=== PATIENT | female | born 1990 | race Caucasian/White ===

== ENCOUNTER 2019-03-01 11:47 | Emergency (ER) | payer OTHER ==
[2019-03-01 13:56] LABS: Urine Blood NEGATIVE (NEG); Urine Glucose NEGATIVE (NEG); Urine Protein NEGATIVE (NEG)
--- NOTE | 2019-03-01 14:11 | RAD REPORT ---
EXAM DESCRIPTION: RAD - Wrist Left 3 View - 03/01/2019 2:06 pm CLINICAL HISTORY: fall Pain COMPARISON: No comparisons FINDINGS: No fracture or dislocation seen. No foreign body or other soft tissue abnormality. IMPRESSION: Negative examination.
--- NOTE | 2019-03-01 14:15 | RAD REPORT ---
EXAM DESCRIPTION: US - 1St Trimest Single 1St Fetus - 03/01/2019 2:07 pm CLINICAL HISTORY: fall 10 weeks preg , trauma to abdomen COMPARISON: No comparisons FINDINGS: A single gestational sac is seen within the uterus. The shape of the sac is within normal limits for gestational age. Within the sac is a single pole with crown-rump length of 3.3 cm, c orrelating to estimated gestational age of 10 weeks 1 day. Estimated date of delivery is 09/26/2019. Heart rate is 157 BPM. The placenta is not yet developed due to early gestational age. Bowel gas obscured the maternal adnexae with and ovaries. IMPRESSION: Single live early intrauterine gestation with estimated gestational age of 10 weeks 1 da y, ALBERTA 09/26/2019. No acute trauma related abnormality.
--- NOTE | 2019-03-01 18:48 | ER ---
Nurse's Notes [facility] Name: Nadira Granger Age: 28 yrs Sex: Female : 1990 Arrival Date: 03/01/2019 Time: 11:51 Bed 24 Private MD: Diagnosis: Pain in left wrist;Fall from chair;Unspecified abdominal pain Presentation: 03/01 11:55 Presenting complaint: Patient states: "I was sitting in my office chair and I leaned aj1 back too far and I fell. I hit my wrist and then my side and my stomach and I'm 10 weeks " Reports LLQ abdominal pain. Denies vaginal bleeding. Transition of care: patient was not received from another setting of care. Onset of symptoms was March 01, 2019. Risk Assessment: Do you want to hurt yourself or someone else? Patient reports no desire to harm self or others. Initial Sepsis Screen: Does the patient meet any 2 criteria? No. Patient's initial sepsis screen is negative. Does the patient have a suspected source of infection? No. Patient's initial sepsis screen is negative. Care prior to arrival: None. 11:55 Method Of Arrival: Ambulatory aj1 11:55 Acuity: BRET 3 aj1 15:28 Mechanism of Injury: Fall out of chair. Trauma event details: Injury occurred: February. Triage Assessment: 11:56 General: Appears in no apparent distress. comfortable, Behavior is calm, cooperative, aj1 appropriate for age. Pain: Complains of pain in left lower quadrant Pain currently is 7 out of 10 on a pain scale. Neuro: Level of Consciousness is awake, alert, obeys commands. Cardiovascular: Patient's skin is warm and dry. Respiratory: Airway is patent Respiratory effort is even, unlabored, Respiratory pattern is regular, symmetrical. 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 - Social history:: Smoking status: Patient/guardian denies using tobacco. - Immunization history: Last tetanus immunization: unknown. - Ebola Screening: : Patient denies travel to an Ebola-affected area in the 21 days before illness onset. Screenin:35 Abuse screen: Denies threats or abuse. Denies injuries from another. Nutritional mg2 screening: No deficits noted. Tuberculosis screening: No symptoms or risk factors identified. 15:30 Fall Risk Fall in past 12 months (25 points). mg2 Primary Survey: 14:34 NO uncontrolled hemorrhage observed. A: The patient is alert. Breathing/Chest: mg2 Respiratory pattern: regular, Respiratory effort: spontaneous, unlabored. Circulation: Skin color: pink. Disability Alert. Exposure/Environment: All clothing and personal items were removed. Forensic evidence collection is not deemed to be indicated at this time. Items placed in patient belonging bag. There is no evidence of uncontrolled external bleeding. No obvious injuries are noted at this time. A warming method has been applied: A warm blanket has been provided to the patient. 14:36 Reassessment Breathing/Chest Respiratory pattern. mg2 Secondary Survey: 14:35 HEENT: No deficits noted. Gastrointestinal: No deficits noted. : Reports pain in left mg2 flank(s). Musculoskeletal: Circulation, motion, and sensation intact. Capillary refill < 3 seconds. Assessment: 14:33 General: Appears in no apparent distress. comfortable, Behavior is calm, cooperative. mg2 Pain: Complains of pain in abdomen and left lower quadrant Pain does not radiate. Pain currently is 3 out of 10 on a pain scale. Quality of pain is described as aching, Pain began suddenly, 2 hours ago. Is intermittent. Neuro: Level of Consciousness is awake, alert, obeys commands, Oriented to person, place, time, situation. EENT: No signs and/or symptoms were reported regarding the EENT system. Cardiovascular: Capillary refill < 3 seconds Patient's skin is warm and dry. Respiratory: Airway is patent Respiratory effort is even, unlabored, Respiratory pattern is regular, symmetrical. GI: No signs and/or symptoms were reported involving the gastrointestinal system. : No signs and/or symptoms were reported regarding the genitourinary system. Derm: Skin is intact, is healthy with good turgor, Skin is pink, warm \\T\\ dry. normal. Musculoskeletal: Circulation, motion, and sensation intact. Capillary refill < 3 seconds. Vital Signs: 11:56 BP 132 / 74; Pulse 91; Resp 18; Temp 98.0; Pulse Ox 100% on R/A; Weight 74.39 kg (R); aj1 Height 5 ft. 7 in. (170.18 cm) (R); 14:35 BP 123 / 83; Pulse 88; Resp 18; Pulse Ox 100% on R/A; mg2 15:29 BP 122 / 78; Pulse 89; Resp 18; Temp 98; Pulse Ox 100% on R/A; mg2 11:56 Body Mass Index 25.69 (74.39 kg, 170.18 cm) aj1 Delmer Coma Score: 14:35 Eye Response: spontaneous(4). Verbal Response: oriented(5). Motor Response: obeys mg2 commands(6). Total: 15. 15:29 Eye Response: spontaneous(4). Verbal Response: oriented(5). Motor Response: obeys mg2 commands(6). Total: 15. Trauma Score (Adult): 14:35 Eye Response: spontaneous(1); Verbal Response: oriented(1); Motor Response: obeys mg2 commands(2); Systolic BP: > 89 mm Hg(4); Respiratory Rate: 10 to 29 per min(4); Delmer Score: 15; Trauma Score: 12 15:29 Eye Response: spontaneous(1); Verbal Response: oriented(1); Motor Response: obeys mg2 commands(2); Systolic BP: > 89 mm Hg(4); Respiratory Rate: 10 to 29 per min(4); Delmer Score: 15; Trauma Score: 12 ED Course: 11:51 Patient arrived in ED. mr 11:56 Triage completed. aj1 11:56 Arm band placed on Patient placed in waiting room, Patient notified of wait time. aj1 12:55 Michael Ybarra NP is PHCP. pm1 12:55 Herson Le MD is Attending Physician. pm1 12:56 Lukas Ace RN is Primary Nurse. mg2 13:12 Urine collected: clean catch specimen, clear. lt1 13:46 Radiology exam delayed due to PT IN [facility]. jb2 14:36 Patient has correct armband on for positive identification. Pulse ox on. NIBP on. mg2 14:36 No provider procedures requiring assistance completed. Patient did not have IV access mg2 during this emergency room visit. 15:28 Patient maintains SpO2 saturation greater than 95% on room air. Thermoregulation: warm mg2 blanket given to patient. Administered Medications: No medications were administered Intake: 14:35 PO: 0ml; Total: 0ml. mg2 Outcome: 15:05 Discharge ordered by MD. pm1 15:29 Discharged to home ambulatory. mg2 15:29 Condition: stable 15:29 Patient's length of stay in the Emergency Department was greater than 2 hours. awaiting for the tests results to be back/ [employer] was down. Patient's length of stay extended due to 15:30 Discharge instructions given to patient, Instructed on discharge instructions, follow mg2 up and referral plans. Demonstrated understanding of instructions, follow-up care. 15:30 Patient left the ED. mg2 Signatures: Renetta Gama, KARTHIKEYAN RN aj1 Lauryn Monsalve RamyacourtneyPoncho jb2 Michael Ybarra, ANDREA MOLD FILLING OPERATOR pm1 Lukas Ace RN RN mg2 Dodie Roa lt1
--- NOTE | 2019-03-01 18:49 | EDPHYS ---
Physician Documentation [facility] Name: Nadira Granger Age: 28 yrs Sex: Female : 1990 Arrival Date: 03/01/2019 Time: 11:51 Bed 24 Private MD: ED Physician Herson Le HPI: 03/01 16:45 This 28 yrs old Female presents to ER via Ambulatory with complaints of Fall pm1 Injury, 10 wks . 16:45 Details of fall: The patient fell from seated position, out of a chair. Onset: The pm1 symptoms/episode began/occurred just prior to arrival. Associated injuries: The patient sustained injury to the abdomen, specifically the suprapubic area, left wrist, pain. Severity of symptoms: in the emergency department the symptoms are unchanged. The patient has not experienced similar symptoms in the past. The patient has not recently seen a physician. Patient was seated and leaned back. Fell backwards on the left side, supporting fall with left hand. Presenting with left wrist pain and hit the left side of suprapubic area on the floor. No vaginal bleeding or discharge. 10 weeks . 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 - Social history:: Smoking status: Patient/guardian denies using tobacco. - Immunization history: Last tetanus immunization: unknown. - Ebola Screening: : Patient denies travel to an Ebola-affected area in the 21 days before illness onset. ROS: 16:45 Constitutional: Negative for fever, chills, and weight loss, Eyes: Negative for injury, pm1 pain, redness, and discharge, ENT: Negative for injury, pain, and discharge, Neck: Negative for injury, pain, and swelling, Cardiovascular: Negative for chest pain, palpitations, and edema, Respiratory: Negative for shortness of breath, cough, wheezing, and pleuritic chest pain. 16:45 Back: Negative for injury and pain, : Negative for injury, bleeding, discharge, and swelling. 16:45 Skin: Negative for injury, rash, and discoloration, Neuro: Negative for headache, weakness, numbness, tingling, and seizure. 16:45 Abdomen/GI: Positive for abdominal pain, Negative for nausea, vomiting, and diarrhea. 16:45 MS/extremity: Positive for pain, of the left wrist, Negative for decreased range of motion, deformity. Exam: 16:45 Constitutional: This is a well developed, well nourished patient who is awake, alert, pm1 and in no acute distress. Head/Face: Normocephalic, atraumatic. Neck: Trachea midline, no thyromegaly or masses palpated, and no cervical lymphadenopathy. Supple, full range of motion without nuchal rigidity, or vertebral point tenderness. No Meningismus. Chest/axilla: Normal chest wall appearance and motion. Nontender with no deformity. No lesions are appreciated. Cardiovascular: Regular rate and rhythm with a normal S1 and S2. No gallops, murmurs, or rubs. Normal PMI, no JVD. No pulse deficits. Respiratory: Lungs have equal breath sounds bilaterally, clear to auscultation and percussion. No rales, rhonchi or wheezes noted. No increased work of breathing, no retractions or nasal flaring. 16:45 Back: No spinal tenderness. No costovertebral tenderness. Full range of motion. Skin: Warm, dry with normal turgor. Normal color with no rashes, no lesions, and no evidence of cellulitis. MS/ Extremity: Pulses equal, no cyanosis. Neurovascular intact. Full, normal range of motion. 16:45 Abdomen/GI: Inspection: abdomen appears normal, Bowel sounds: normal, Palpation: abdomen is soft and non-tender, in all quadrants. 16:45 Neuro: Orientation: is normal, Motor: is normal, moves all fours. Vital Signs: 11:56 BP 132 / 74; Pulse 91; Resp 18; Temp 98.0; Pulse Ox 100% on R/A; Weight 74.39 kg (R); aj1 Height 5 ft. 7 in. (170.18 cm) (R); 14:35 BP 123 / 83; Pulse 88; Resp 18; Pulse Ox 100% on R/A; mg2 15:29 BP 122 / 78; Pulse 89; Resp 18; Temp 98; Pulse Ox 100% on R/A; mg2 11:56 Body Mass Index 25.69 (74.39 kg, 170.18 cm) aj1 Delmer Coma Score: 14:35 Eye Response: spontaneous(4). Verbal Response: oriented(5). Motor Response: obeys mg2 commands(6). Total: 15. 15:29 Eye Response: spontaneous(4). Verbal Response: oriented(5). Motor Response: obeys mg2 commands(6). Total: 15. Trauma Score (Adult): 14:35 Eye Response: spontaneous(1); Verbal Response: oriented(1); Motor Response: obeys mg2 commands(2); Systolic BP: > 89 mm Hg(4); Respiratory Rate: 10 to 29 per min(4); Chatom Score: 15; Trauma Score: 12 15:29 Eye Response: spontaneous(1); Verbal Response: oriented(1); Motor Response: obeys mg2 commands(2); Systolic BP: > 89 mm Hg(4); Respiratory Rate: 10 to 29 per min(4); Chatom Score: 15; Trauma Score: 12 MDM: 12:55 Patient medically screened. pm1 15:03 Data reviewed: vital signs. Data interpreted: Pulse oximetry: on room air is 100 %. pm1 Interpretation: normal. Counseling: I had a detailed discussion with the patient and/or guardian regarding: the historical points, exam findings, and any diagnostic results supporting the discharge/admit diagnosis, radiology results, the need for outpatient follow up, an OB/Gyne specialist, to return to the emergency department if symptoms worsen or persist or if there are any questions or concerns that arise at home. 03/01 13:22 Order name: US Transvaginal Ob pm1 03/01 13:22 Order name: Wrist Left (3 View) XRAY pm1 Administered Medications: No medications were administered Disposition: 03/02 07:28 Co-signature as Attending Physician, Herson Le MD I agree with the assessment and kdr plan of care. Disposition: 03/01/19 15:05 Discharged to Home. Impression: Fall from chair, Pain in left wrist, Unspecified abdominal pain. - Condition is Stable. - Discharge Instructions: Abdominal Pain During , Wrist Pain, [id number]. - Work release form, Medication Reconciliation Form, Thank You Letter, Antibiotic Education, Prescription Opioid Use form. - Follow up: Emergency Department; When: As needed; Reason: Worsening of condition. Follow up: Private Physician; When: 2 - 3 days; Reason: Recheck today's complaints, Continuance of care, Re-evaluation by your physician. - Problem is new. - Symptoms have improved. Signatures: Dispatcher [employer] EDMS Renetta Gama RN RN aj1 Herson Le MD MD kdr Michael Ybarra, VP PROJECT VP PROJECT pm1 Lukas Ace RN RN mg2 Corrections: (The following items were deleted from the chart) 03/01 15:06 15:05 03/01/2019 15:05 Discharged to Home. Impression: Fall from chairPain in left pm1 wrist. Condition is Stable. Forms are Medication Reconciliation Form, Thank You Letter, Antibiotic Education, Prescription Opioid Use. Follow up: Emergency Department; When: As needed; Reason: Worsening of condition. Follow up: Private Physician; When: 2 - 3 days; Reason: Recheck today's complaints, Continuance of care, Re-evaluation by your physician. Problem is new. Symptoms have improved. pm1 15:30 15:06 03/01/2019 15:05 Discharged to Home. Impression: Fall from chairPain in left mg2 wrist; Unspecified abdominal pain. Condition is Stable. Discharge Instructions: First Trimester of , Wrist Pain, [id number]. Forms are Medication Reconciliation Form, Thank You Letter, Antibiotic Education, Prescription Opioid Use. Follow up: Emergency Department; When: As needed; Reason: Worsening of condition. Follow up: Private Physician; When: 2 - 3 days; Reason: Recheck today's complaints, Continuance of care, Re-evaluation by your physician. Problem is new. Symptoms have improved. pm1
== END 2019-03-01 15:30 | disposition home or self-care (01) ==
LOC: ER 11:47
DX: O26.891 Other specified pregnancy related conditions, first trimester (principal); M25.532 Pain in left wrist; R10.9 Unspecified abdominal pain; W17.89XA Other fall from one level to another, initial encounter; Y93.89 Activity, other specified; Y92.9 Unspecified place or not applicable
CPT/HCPCS: 76801; 81003; 81025; 99284